=== PATIENT | female | born 1990 | race Hispanic/Latino ===

== ENCOUNTER 2023-01-07 15:27 | Emergency (ER) | payer OTHER ==
[~2023-01-07] VITALS: Ht 162.6 cm; Wt 113.9 kg
[2023-01-07 16:33] VITALS: BP 173/90
[2023-01-07] MEDS ORDERED: BENZ-226 PO (19:04)
== END 2023-01-07 19:16 | disposition home or self-care (01) ==
LOC: EDH 15:27
DX: J06.9 Acute upper respiratory infection, unspecified (principal); Z20.822 Contact with and (suspected) exposure to COVID-19
CPT/HCPCS: 99283; 87635; 87880; 87804 ×2; C9803